=== PATIENT | male | born 1985 | race Two or more races ===

== ENCOUNTER 2018-12-25 09:58 | Emergency (ER) | payer SELFPAY ==
[~2018-12-25] VITALS: Ht 180.3 cm; Wt 104.3 kg
[~2018-12-25 09:58] MED LIST: FERR325T14 PO; GABA300C18 PO; MELA3TAB2 PO; OXYC1TAB15 PO
[2018-12-25 10:20] VITALS: BP 120/61
[2018-12-25] MEDS ORDERED: HYDROcodone/APAP 5/325MG 1 TAB TABLET PO ONE (12:30)
[2018-12-25] MEDS ORDERED: CLINDAMYCIN HCL 150 MG CAPSULE. PO ONE (12:30)
[2018-12-25] MEDS ORDERED: BENZOCAINE ONE 20% MUCOSAL SPRAY. MM (12:30)
[2018-12-25] MEDS ORDERED: CHLO15MO2 PO (12:32)
[2018-12-25] MEDS ORDERED: NAPR-514 PO (12:32)
[2018-12-25] MEDS ORDERED: CLIN150C14 PO (12:32)
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
== END 2018-12-25 12:52 | disposition home or self-care (01) ==
LOC: ER 09:58
DX: K02.9 Dental caries, unspecified (principal); K05.10 Chronic gingivitis, plaque induced; F17.200 Nicotine dependence, unspecified, uncomplicated
CPT/HCPCS: 99284